=== PATIENT | female | born 1950 | race Caucasian/White ===

== ENCOUNTER 2018-05-08 14:52 | Emergency (ER) | payer OTHER ==
[~2018-05-08] VITALS: Ht 162.6 cm; Wt 80.7 kg
[2018-05-08] MEDS ORDERED: ZIAC 5-6.25 MG1 EACH (15:08)
[2018-05-08] MEDS ORDERED: NORVASC2.5 MG (15:08)
[2018-05-08] MEDS ORDERED: PROTECT IRON T1 EACH (15:08)
[2018-05-08] MEDS ORDERED: HYZAAR 100-251 EACH (15:08)
== END 2018-05-08 20:53 | disposition home or self-care (01) ==
LOC: ER 14:52
DX: K57.30 Diverticulosis of large intestine without perforation or abscess without bleeding (principal); K80.80 Other cholelithiasis without obstruction; N39.0 Urinary tract infection, site not specified; R10.32 Left lower quadrant pain

== ENCOUNTER 2018-06-06 08:59 | Outpatient (CLI) | payer OTHER ==
[~2018-06-06 08:59] MED LIST: HYZAAR 100-251 EACH; NORVASC2.5 MG; PROTECT IRON T1 EACH; ZIAC 5-6.25 MG1 EACH
== END 2018-06-06 09:20 | disposition home or self-care (01) ==
LOC: NUCLEAR 08:59
DX: K81.1 Chronic cholecystitis (principal)
CPT/HCPCS: 78227; A9537

== ENCOUNTER 2019-07-14 18:33 | Emergency (ER) | payer OTHER ==
[~2019-07-14] VITALS: Ht 160 cm; Wt 77.1 kg
[~2019-07-14 18:33] MED LIST changes: +HYZAAR 100-251 EACH PO
[2019-07-14] MEDS ORDERED: PROZAC20 MG (19:09)
[2019-07-14] MEDS ORDERED: NORVASC2.5 M1 (19:09)
== END 2019-07-14 21:25 | disposition home or self-care (01) ==
LOC: ER 18:33
DX: M51.26 Other intervertebral disc displacement, lumbar region (principal)

== ENCOUNTER 2022-01-19 15:17 | Outpatient (CLI) | payer OTHER ==
[~2022-01-19 15:17] MED LIST changes: +NORVASC2.5 M1; +PROZAC20 MG
== END 2022-01-19 15:25 | disposition home or self-care (01) ==
LOC: RAD 15:17
PROVIDERS: ATTEND Orthopaedic Surgery
DX: M25.571 Pain in right ankle and joints of right foot (principal)

== ENCOUNTER 2022-01-24 11:06 | Outpatient (CLI) | payer OTHER | END 2022-01-24 11:08 | disposition home or self-care (01) | LOC: LAB 11:06 | PROVIDERS: ATTEND Orthopaedic Surgery | DX: D64.9 Anemia, unspecified (principal); E88.9 Metabolic disorder, unspecified; D68.8 Other specified coagulation defects; N39.0 Urinary tract infection, site not specified; A49.02 Methicillin resistant Staphylococcus aureus infection, unspecified site; E11.9 Type 2 diabetes mellitus without complications; I49.9 Cardiac arrhythmia, unspecified; I10 Essential (primary) hypertension; Z76.89 Persons encountering health services in other specified circumstances ==

== ENCOUNTER → 2022-02-12 | Emergency (ER) | payer OTHER ==
[~2022-02-12] VITALS: Ht 160 cm; Wt 77.1 kg
[~2022-02-12] MED LIST changes: +ZEBETA; +ZIAC 10/6.25 MG1 TAB
== END | disposition left against medical advice (07) ==
LOC: ER 21:36
DX: Z53.21 Procedure and treatment not carried out due to patient leaving prior to being seen by health care provider (principal)

== ENCOUNTER 2022-04-08 10:23 | Emergency (ER) | payer OTHER ==
[~2022-04-08] VITALS: Ht 162.6 cm; Wt 74.8 kg
[2022-04-08] MEDS ORDERED: PRAVASTATIN SOD20 MG PO (10:35)
== END 2022-04-08 13:13 | disposition home or self-care (01) ==
LOC: ER 10:23
DX: M79.605 Pain in left leg (principal); Z88.6 Allergy status to analgesic agent; I10 Essential (primary) hypertension

== ENCOUNTER 2022-04-11 14:24 | Outpatient (CLI) | payer OTHER ==
[~2022-04-11 14:24] MED LIST changes: +PRAVASTATIN SOD20 MG PO
== END 2022-04-11 14:25 | disposition home or self-care (01) ==
LOC: LAB 14:24
PROVIDERS: ATTEND Orthopaedic Surgery
DX: M25.462 Effusion, left knee (principal)

== ENCOUNTER 2022-04-14 15:10 | Outpatient (CLI) | payer OTHER | END 2022-04-14 15:16 | disposition home or self-care (01) | LOC: RAD 15:10 | PROVIDERS: ATTEND Orthopaedic Surgery | DX: M25.562 Pain in left knee (principal); M25.572 Pain in left ankle and joints of left foot ==

== ENCOUNTER 2022-04-25 10:10 | Outpatient (CLI) | payer OTHER | END 2022-04-25 10:29 | disposition home or self-care (01) | LOC: LAB 10:10 | PROVIDERS: ATTEND Orthopaedic Surgery | DX: D64.9 Anemia, unspecified (principal); E88.9 Metabolic disorder, unspecified; D68.8 Other specified coagulation defects; N39.0 Urinary tract infection, site not specified; A49.02 Methicillin resistant Staphylococcus aureus infection, unspecified site; E11.9 Type 2 diabetes mellitus without complications; I49.9 Cardiac arrhythmia, unspecified; I10 Essential (primary) hypertension; Z76.89 Persons encountering health services in other specified circumstances ==

== ENCOUNTER 2022-05-09 15:12 | Outpatient (CLI) | payer OTHER | END 2022-05-09 15:27 | disposition home or self-care (01) | LOC: LAB 15:12 | PROVIDERS: ATTEND Orthopaedic Surgery | DX: E55.9 Vitamin D deficiency, unspecified (principal); M85.9 Disorder of bone density and structure, unspecified; E56.1 Deficiency of vitamin K ==

== ENCOUNTER 2022-09-14 14:16 | Outpatient (CLI) | payer OTHER ==
[~2022-09-14 14:16] MED LIST changes: +AMLODIPINE BESY10 MG; +BISOPROLOL FUMAR5 MG; +GABAPENTIN100 M2; +MULTI VITAMIN1 EACH PO; +PROBIOTIC PLUS1 EACH PO; +PROZAC20 MG PO; +XARELTO10 M1; +ZETIA10 MG PO; +ZIAC 5-6.25 MG1 EACH PO
== END 2022-09-14 14:20 | disposition home or self-care (01) ==
LOC: RAD 14:16
PROVIDERS: ATTEND Orthopaedic Surgery
DX: M17.11 Unilateral primary osteoarthritis, right knee (principal); M25.561 Pain in right knee

== ENCOUNTER → 2022-10-10 11:35 | Outpatient (CLI) | payer OTHER | END | disposition home or self-care (01) | LOC: LAB 11:35 | PROVIDERS: ATTEND Orthopaedic Surgery | DX: D64.9 Anemia, unspecified (principal); E88.9 Metabolic disorder, unspecified; D68.8 Other specified coagulation defects; N39.0 Urinary tract infection, site not specified; E11.9 Type 2 diabetes mellitus without complications; I10 Essential (primary) hypertension; Z76.89 Persons encountering health services in other specified circumstances; D64.89 Other specified anemias; E88.89 Other specified metabolic disorders; A49.02 Methicillin resistant Staphylococcus aureus infection, unspecified site ==

== ENCOUNTER 2022-10-19 12:15 | Inpatient (IN) | payer OTHER ==
[~2022-10-19] VITALS: Ht 160 cm; Wt 84.4 kg
== END 2022-10-27 14:47 | disposition home or self-care (01) | DRG 470 ==
LOC: O/R 10-24 09:26 → SURH 10-24 10:15 → SURG 10-24 16:54
PROVIDERS: ADMIT Orthopaedic Surgery; ATTEND Orthopaedic Surgery
PROC: 0SRC069 Replacement of Right Knee Joint with Oxidized Zirconium on Polyethylene Synthetic Substitute, Cemented, Open Approach (ICD-10-PCS; principal; 2022-10-24 10:15)
PROC: 30233N1 Transfusion of Nonautologous Red Blood Cells into Peripheral Vein, Percutaneous Approach (ICD-10-PCS; 2022-10-26)
DX: M17.11 Unilateral primary osteoarthritis, right knee (principal); D62 Acute posthemorrhagic anemia; I10 Essential (primary) hypertension; Z96.651 Presence of right artificial knee joint; Z20.822 Contact with and (suspected) exposure to COVID-19

== ENCOUNTER 2023-06-10 13:48 | Emergency (ER) | payer OTHER ==
[~2023-06-10] VITALS: Ht 162.6 cm; Wt 79.4 kg
== END 2023-06-10 17:55 | disposition home or self-care (01) ==
LOC: ER 13:48
DX: L03.211 Cellulitis of face (principal)

== ENCOUNTER 2024-10-18 11:32 | Outpatient (CLI) | payer OTHER | END 2024-10-18 11:35 | disposition home or self-care (01) | LOC: EKG 11:32 | PROVIDERS: ATTEND Ophthalmology | DX: Z01.810 Encounter for preprocedural cardiovascular examination (principal) ==

== ENCOUNTER 2025-02-12 11:32 | Outpatient (CLI) | payer OTHER | END 2025-02-12 11:33 | disposition home or self-care (01) | LOC: SONOGRAMA 11:32 | PROVIDERS: ATTEND Internal Medicine | DX: E04.1 Nontoxic single thyroid nodule (principal) ==

== ENCOUNTER → 2025-03-26 07:35 | Outpatient (CLI) | payer OTHER | END | disposition home or self-care (01) | LOC: NUCLEAR 07:00 | PROVIDERS: ATTEND Specialist | DX: N25.81 Secondary hyperparathyroidism of renal origin (principal); D35.1 Benign neoplasm of parathyroid gland | CPT/HCPCS: 78071; A9500 ==

== ENCOUNTER 2025-04-01 07:21 | Outpatient (CLI) | payer OTHER | END 2025-04-01 07:22 | disposition home or self-care (01) | LOC: NUCLEAR 07:21 | PROVIDERS: ATTEND Internal Medicine | DX: I20.9 Angina pectoris, unspecified (principal) | CPT/HCPCS: 78452; 93017; A9500 ==

== ENCOUNTER 2025-04-11 11:09 | Outpatient (CLI) | payer OTHER | END 2025-04-11 11:23 | disposition home or self-care (01) | LOC: TOM 11:09 | PROVIDERS: ATTEND Specialist | DX: M51.26 Other intervertebral disc displacement, lumbar region (principal); M51.06 Intervertebral disc disorders with myelopathy, lumbar region ==

== ENCOUNTER → 2025-04-21 | Outpatient (CLI) | payer OTHER | END | disposition home or self-care (01) | LOC: MRI 12:20 | PROVIDERS: ATTEND Specialist | DX: M47.14 Other spondylosis with myelopathy, thoracic region (principal); M47.24 Other spondylosis with radiculopathy, thoracic region; S22.000A Wedge compression fracture of unspecified thoracic vertebra, initial encounter for closed fracture | CPT/HCPCS: 72146 ==